=== PATIENT | female | born 1950 | race Caucasian/White ===

== ENCOUNTER 2017-12-22 09:14 | Outpatient (CLI) | payer OTHER ==
[~2017-12-22] VITALS: Ht 152.4 cm; Wt 54.4 kg
== END 2017-12-22 14:42 | disposition home or self-care (01) ==
LOC: OFIC 805 09:14
DX: J31.0 Chronic rhinitis (principal); G47.33 Obstructive sleep apnea (adult) (pediatric)

== ENCOUNTER 2018-01-04 10:12 | Outpatient (CLI) | payer OTHER | END 2018-01-04 10:18 | disposition home or self-care (01) | LOC: SONOGRAMA 10:12 | DX: R22.1 Localized swelling, mass and lump, neck (principal) ==

== ENCOUNTER 2018-05-10 09:12 | Outpatient (CLI) | payer OTHER | END 2018-05-10 09:30 | disposition home or self-care (01) | LOC: LAB 09:12 | DX: E78.2 Mixed hyperlipidemia (principal); I20.0 Unstable angina ==

== ENCOUNTER → 2019-03-07 07:14 | Outpatient (CLI) | payer OTHER | END | disposition home or self-care (01) | LOC: LAB 07:14 | DX: I11.0 Hypertensive heart disease with heart failure (principal); E11.9 Type 2 diabetes mellitus without complications; N39.0 Urinary tract infection, site not specified; M06.1 Adult-onset Still's disease; D53.9 Nutritional anemia, unspecified; E78.2 Mixed hyperlipidemia; E03.8 Other specified hypothyroidism; E55.9 Vitamin D deficiency, unspecified; M05.0 Felty's syndrome; E07.89 Other specified disorders of thyroid ==

== ENCOUNTER 2025-09-01 14:32 | Outpatient (CLI) | payer OTHER | END 2025-09-01 14:43 | disposition home or self-care (01) | LOC: RAD 14:32 | PROVIDERS: ATTEND Internal Medicine | DX: Z01.818 Encounter for other preprocedural examination (principal); G47.30 Sleep apnea, unspecified ==